=== PATIENT | male | born 1940 | race Two or more races ===

== ENCOUNTER 2016-12-23 13:55 | Emergency (ER) | payer OTHER, MEDICAID ==
[~2016-12-23] VITALS: Ht 175.3 cm; Wt 75.7 kg
[~2016-12-23 13:55] MED LIST: ATE50T PO
[2016-12-23 14:41] LABS: Basophils # (auto) 0 uL; Basophils % (auto) 0.2 % (0.0-2.0); Eosinophils # (auto) 0.1 uL; Eosinophils % (auto) 1.8 % (0.0-7.0); Hematocrit 43.8 % (41.0-53.0); Hemoglobin 15.3 g/dL (13.5-17.5); Lymphocytes # (auto) 1.5 uL; Lymphocytes % (auto) 23.7 % (10.0-50.0); Mean Corpuscular Hemoglobin 31.4 pg (28.0-32.0); Mean Corpuscular Hgb Conc. 34.9 g/dL (32.0-36.0); Mean Corpuscular Volume 89.9 fL (80.0-100.0); Mean Platelet Volume 7.8 fL (7.4-10.4); Monocytes # (auto) 0.3 uL; Monocytes % (auto) 5.1 % (0.0-12.0); Neutrophils # (auto) 4.4 uL; Neutrophils % (auto) 69.2 % (37.0-80.0); Platelet Count (auto) 235 10^3/uL (140-450); Red Cell Distribution Width 13.3 % (11.6-16.0); White Blood Cell 6.4 10^3/uL (4.4-10.8)
[2016-12-23 15:04] LABS: Albumin 4.3 g/dL (3.4-5.0); Alkaline Phosphatase 105 U/L (45-117); Anion Gap 7 (5-15); Aspartate Aminotransferase 20 U/L (15-37); BUN/Creatinine Ratio 12.2; Bilirubin, Total 0.6 mg/dL (0.2-1.0); Blood Urea Nitrogen 14 mg/dL (7-18); Carbon Dioxide 30 mmol/L (21-32); Chloride 103 mmol/L (98-107); GFR African American 80 mL/min; GFR Non-African American 66 mL/min; Glucose 91 mg/dL (74-106); Magnesium 2.6 mg/dL (1.6-2.6); Potassium 4.6 mmol/L (3.5-5.1); Sodium 140 mmol/L (136-145); Total Protein 7.6 g/dL (6.4-8.2)
[2016-12-23 21:30] VITALS: BP 126/76
== END 2016-12-23 22:19 | disposition home or self-care (01) ==
LOC: ER 13:55
DX: M47.892 Other spondylosis, cervical region (principal); R07.89 Other chest pain; M47.9 Spondylosis, unspecified; M19.90 Unspecified osteoarthritis, unspecified site; I10 Essential (primary) hypertension; I25.2 Old myocardial infarction; Z88.0 Allergy status to penicillin
CPT/HCPCS: 36415; 71020; 72125; 72131; 80053; 83735; 84484; 85025; 93005

== ENCOUNTER 2017-03-18 19:34 | Emergency (ER) | payer OTHER, MEDICAID ==
[~2017-03-18] VITALS: Ht 170.2 cm; Wt 73.5 kg
[2017-03-18 20:30] LABS: Basophils # (auto) 0 uL; Basophils % (auto) 0.4 % (0.0-2.0); CONDITION Y; Eosinophils # (auto) 0.1 uL; Eosinophils % (auto) 1.2 % (0.0-7.0); Hematocrit 39.4 % (41.0-53.0); Hemoglobin 13.6 g/dL (13.5-17.5); Lymphocytes # (auto) 1.5 uL; Lymphocytes % (auto) 27.2 % (10.0-50.0); Mean Corpuscular Hgb Conc. 34.5 g/dL (32.0-36.0); Mean Corpuscular Volume 92.6 fL (80.0-100.0); Monocytes # (auto) 0.3 uL; Monocytes % (auto) 5.8 % (0.0-12.0); Neutrophils # (auto) 3.6 uL; Neutrophils % (auto) 65.4 % (37.0-80.0); Platelet Count (auto) 203 10^3/uL (140-450); Red Cell Distribution Width 12.9 % (11.6-16.0); White Blood Cell 5.5 10^3/uL (4.4-10.8)
[2017-03-18 20:51] LABS: Albumin 4.1 g/dL (3.4-5.0); BUN/Creatinine Ratio 16.8; Bilirubin, Total 0.7 mg/dL (0.2-1.0); Calcium 8.4 mg/dL (8.5-10.1); Potassium 3.4 mmol/L (3.5-5.1)
[2017-03-19] MEDS ORDERED: cloNIDine HCL 0.1 MG TAB PO ONE ×2 (02:45→03:15)
[2017-03-19] MEDS ORDERED: LORazepam 0.5 MG TAB PO ONE (02:45)
[2017-03-19 03:06] VITALS: BP 165/85
== END 2017-03-19 04:10 | disposition home or self-care (01) ==
LOC: ER 19:37
DX: I10 Essential (primary) hypertension (principal); M19.90 Unspecified osteoarthritis, unspecified site; I25.2 Old myocardial infarction; H53.8 Other visual disturbances; Z90.49 Acquired absence of other specified parts of digestive tract; Z88.0 Allergy status to penicillin; Z79.899 Other long term (current) drug therapy
CPT/HCPCS: 36415; 70450; 80053; 85025

== ENCOUNTER 2017-04-16 20:25 | Inpatient (IN) | payer OTHER, MEDICAID ==
[~2017-04-16] VITALS: Ht 170.2 cm; Wt 75.1 kg
[2017-04-16 21:39] LABS: Basophils # (auto) 0 uL; Basophils % (auto) 0.2 % (0.0-2.0); CONDITION Y; Eosinophils # (auto) 0.1 uL; Eosinophils % (auto) 2.2 % (0.0-7.0); Hematocrit 41.6 % (41.0-53.0); Hemoglobin 14.2 g/dL (13.5-17.5); Lymphocytes # (auto) 1.6 uL; Lymphocytes % (auto) 28.7 % (10.0-50.0); Mean Corpuscular Hemoglobin 31.5 pg (28.0-32.0); Mean Corpuscular Hgb Conc. 34.2 g/dL (32.0-36.0); Mean Corpuscular Volume 92.3 fL (80.0-100.0); Mean Platelet Volume 8.3 fL (7.4-10.4); Monocytes # (auto) 0.4 uL; Monocytes % (auto) 6.6 % (0.0-12.0); Neutrophils # (auto) 3.4 uL; Neutrophils % (auto) 62.3 % (37.0-80.0); Platelet Count (auto) 221 10^3/uL (140-450); White Blood Cell 5.5 10^3/uL (4.4-10.8)
[2017-04-16 21:55] LABS: Albumin 3.9 g/dL (3.4-5.0); Alkaline Phosphatase 113 U/L (45-117); Anion Gap 9 (5-15); Aspartate Aminotransferase 13 U/L (15-37); BUN/Creatinine Ratio 13.7; Bilirubin, Total 0.5 mg/dL (0.2-1.0); Blood Urea Nitrogen 18 mg/dL (7-18); Calcium 8.3 mg/dL (8.5-10.1); Carbon Dioxide 25 mmol/L (21-32); Chloride 106 mmol/L (98-107); GFR African American 69 mL/min; GFR Non-African American 57 mL/min; Glucose 124 mg/dL (74-106); Potassium 3.8 mmol/L (3.5-5.1); Sodium 140 mmol/L (136-145); Total Protein 7.4 g/dL (6.4-8.2)
[2017-04-16 22:00] LABS: Temperature: 23.3 C (20.0-25.0)
[2017-04-17 00:54] LABS: Partial Thromboplastin Time 29.6 sec (22.64-33.71); Prothrombin Time 10.9 sec (9.37-12.3)
[2017-04-17] MEDS ORDERED: ONDANSETRON HCL 4 MG/2 ML VIAL IV PRN (04:00)
[2017-04-17] MEDS ORDERED: HYDROcodone-ACET 5/325MG TAB PO PRN (04:00)
[2017-04-17] MEDS ORDERED: cloNIDine HCL 0.1 MG TAB PO PRN (04:00)
[2017-04-17] MEDS ORDERED: MORPHINE SULF INJ 2 MG/ML SYRINGE 1ML IV PRN (04:00)
[2017-04-17] MEDS ORDERED: NITROGLYCERIN 0.4 MG SL TAB SL PRN (04:00)
[2017-04-17 05:44] VITALS: BP 152/75
[2017-04-17] MEDS ORDERED: LOR05T PO (06:04)
[2017-04-17] MEDS ORDERED: AMLO2.5T PO (06:04)
[2017-04-17] MEDS ORDERED: PRAV20TA3 PO (06:04)
[2017-04-17] MEDS ORDERED: DOCU-55 PO (06:04)
[2017-04-17] MEDS ORDERED: TAM04C PO (06:04)
[2017-04-17 08:00] VITALS: BP 145/78
[2017-04-17 08:19] VITALS: BP 145/78
[2017-04-17] MEDS: amLODIPine BESYLATE 5 MG TAB PO SCH (09:41)
[2017-04-17] MEDS: FAMOTIDINE 20 MG TAB PO SCH ×2 (09:42→21:58)
[2017-04-17] MEDS: ASPirin 81 mg TAB PO SCH (09:43)
[2017-04-17] MEDS: ATENOLOL 50 MG TAB PO SCH (09:43)
[2017-04-17] MEDS: ENOXAPARIN SOD 40 MG/0.4 ML SYRINGE SC SCH (10:00)
[2017-04-17 12:13] VITALS: BP 123/83
[2017-04-17 16:32] VITALS: BP 105/56
[2017-04-17] MEDS: DOCUSATE SOD 100 MG CAP PO PRN (17:25)
[2017-04-17] MEDS: TAMSULOSIN HYDROCHLORIDE 0.4 MG CAP PO SCH (17:25)
[2017-04-17] MEDS: ACETAMINOPHEN 325 MG TAB PO PRN (20:42)
[2017-04-17] MEDS: PRAVASTATIN SODIUM 20 MG TAB PO SCH (21:58)
[2017-04-17] MEDS: TEMAZEPAM 15 MG CAP PO PRN (21:58)
[2017-04-17 22:00] VITALS: BP 120/69
[2017-04-18 05:00] VITALS: BP 111/83
[2017-04-18 06:06] LABS: Basophils # (auto) 0 uL; Basophils % (auto) 0.3 % (0.0-2.0); CONDITION Y; Eosinophils # (auto) 0.1 uL; Eosinophils % (auto) 2.5 % (0.0-7.0); Hematocrit 41.3 % (41.0-53.0); Hemoglobin 14.1 g/dL (13.5-17.5); Lymphocytes # (auto) 1.5 uL; Mean Corpuscular Hemoglobin 31.5 pg (28.0-32.0); Mean Corpuscular Hgb Conc. 34.1 g/dL (32.0-36.0); Mean Corpuscular Volume 92.4 fL (80.0-100.0); Mean Platelet Volume 8.2 fL (7.4-10.4); Monocytes # (auto) 0.3 uL; Monocytes % (auto) 6.1 % (0.0-12.0); Neutrophils # (auto) 3.7 uL; Neutrophils % (auto) 64.1 % (37.0-80.0); Platelet Count (auto) 201 10^3/uL (140-450); Red Cell Distribution Width 12.9 % (11.6-16.0); White Blood Cell 5.7 10^3/uL (4.4-10.8)
[2017-04-18 06:23] LABS: Albumin 3.6 g/dL (3.4-5.0); BUN/Creatinine Ratio 20.6; Calcium 8.5 mg/dL (8.5-10.1); Potassium 4.2 mmol/L (3.5-5.1)
[2017-04-18 06:26] LABS: Bilirubin, Total 0.7 mg/dL (0.2-1.0); Total Protein 6.7 g/dL (6.4-8.2)
[2017-04-18 09:19] VITALS: BP 113/57
[2017-04-18] MEDS: amLODIPine BESYLATE 5 MG TAB PO SCH (10:00)
[2017-04-18] MEDS: DOCUSATE SOD 100 MG CAP PO PRN ×2 (11:05→21:18)
[2017-04-18] MEDS: ENOXAPARIN SOD 40 MG/0.4 ML SYRINGE SC SCH (11:05)
[2017-04-18] MEDS: ASPirin 81 mg TAB PO SCH (11:05)
[2017-04-18] MEDS: FAMOTIDINE 20 MG TAB PO SCH ×2 (11:05→21:18)
[2017-04-18] MEDS: ATENOLOL 50 MG TAB PO SCH (11:06)
[2017-04-18 12:20] VITALS: BP 129/76
[2017-04-18 16:55] VITALS: BP 114/69
[2017-04-18] MEDS: TAMSULOSIN HYDROCHLORIDE 0.4 MG CAP PO SCH (17:18)
[2017-04-18 20:00] VITALS: BP 136/84
[2017-04-18] MEDS: PRAVASTATIN SODIUM 20 MG TAB PO SCH (21:18)
[2017-04-18] MEDS: ACETAMINOPHEN 325 MG TAB PO PRN (21:19)
[2017-04-18] MEDS: TEMAZEPAM 15 MG CAP PO PRN (21:19)
[2017-04-18 22:00] VITALS: BP 136/80
[2017-04-19 05:00] VITALS: BP 111/65
[2017-04-19 08:00] VITALS: BP 136/84
[2017-04-19 09:30] VITALS: BP 133/78
[2017-04-19] MEDS ORDERED: ADENOSINE 63 MG in GIVE UN-DILUTED 0 ML IV ONE (11:00)
[2017-04-19] MEDS: FAMOTIDINE 20 MG TAB PO SCH (12:23)
[2017-04-19] MEDS: ASPirin 81 mg TAB PO SCH (12:23)
[2017-04-19] MEDS: ATENOLOL 50 MG TAB PO SCH (12:24)
[2017-04-19] MEDS: amLODIPine BESYLATE 5 MG TAB PO SCH (12:25)
[2017-04-19 17:03] VITALS: BP 118/67
[2017-04-19 17:26] VITALS: BP 139/80
[2017-04-19] MEDS: TAMSULOSIN HYDROCHLORIDE 0.4 MG CAP PO SCH (18:00)
== END 2017-04-19 18:50 | disposition home or self-care (01) | DRG 313 ==
LOC: ER 20:25 → EDBD 20:25 → TELE 20:26 → TELE-CENTR 04-17 05:20
PROVIDERS: ADMIT Nurse Practitioner; ATTEND Internal Medicine
DX: R07.89 Other chest pain (principal); I25.2 Old myocardial infarction; N17.0 Acute kidney failure with tubular necrosis; I10 Essential (primary) hypertension; E78.5 Hyperlipidemia, unspecified; I25.10 Atherosclerotic heart disease of native coronary artery without angina pectoris; Z88.0 Allergy status to penicillin
CPT/HCPCS: 36415; 71010; 80053; 83880; 84443; 84484; 85025; 85379; 85610; 85730; 93005; 93017; J0153

== ENCOUNTER 2017-10-24 22:15 | Inpatient (IN) | payer OTHER, MEDICAID ==
[~2017-10-24] VITALS: Ht 175.3 cm; Wt 71.9 kg
[~2017-10-24 22:15] MED LIST changes: +AMLO2.5T PO; +DOCU-55 PO; +LORA-654 PO; +PRAV20TA3 PO; +TAM04C PO
[2017-10-24] MEDS ORDERED: cloNIDine HCL 0.1 MG TAB PO ONE (23:00)
[2017-10-24 23:11] LABS: Basophils # (auto) 0 uL; Basophils % (auto) 0.7 % (0.0-2.0); Eosinophils # (auto) 0.2 uL; Eosinophils % (auto) 2.2 % (0.0-7.0); Hematocrit 43.6 % (41.0-53.0); Lymphocytes # (auto) 1.7 uL; Mean Corpuscular Hgb Conc. 34.5 g/dL (32.0-36.0); Mean Corpuscular Volume 90.1 fL (80.0-100.0); Monocytes # (auto) 0.4 uL; Monocytes % (auto) 5.8 % (0.0-12.0); Neutrophils # (auto) 4.7 uL; Neutrophils % (auto) 67.3 % (37.0-80.0); Platelet Count (auto) 179 10^3/uL (140-450); Red Blood Cells 4.84 10^6/uL (4.5-5.90); Red Cell Distribution Width 13.3 % (11.8-14.3)
[2017-10-24 23:29] LABS: BUN/Creatinine Ratio 15.5
[2017-10-24 23:32] LABS: Bilirubin, Total 0.7 mg/dL (0.2-1.0); Total Protein 7.1 g/dL (6.4-8.2)
[2017-10-24 23:56] LABS: Urine Bacteria NONE SEEN /hpf (None Seen); Urine Blood Negative /uL (Negative); Urine Specific Gravity 1.007 (1.001-1.035); Urine WBC <1 /hpf (0 - 3)
[2017-10-25 02:34] LABS: INR 1.03 (0.9-1.15); Partial Thromboplastin Time 29.1 sec (22.64-33.71); Prothrombin Time 11.2 sec (9.37-12.3)
[2017-10-25] MEDS ORDERED: HYDROcodone-ACET 5/325MG TAB PO PRN (06:30)
[2017-10-25] MEDS ORDERED: ACETAMINOPHEN 500 MG TAB PO PRN (06:30)
[2017-10-25] MEDS ORDERED: ASPirin-EC 81 mg tab PO ONE (06:30)
[2017-10-25] MEDS ORDERED: NITROGLYCERIN 0.4 MG SL TAB SL PRN (06:30)
[2017-10-25] MEDS ORDERED: MORPHINE SULFATE 4 MG/ML SYR/VIAL IV PRN (06:30)
[2017-10-25] MEDS ORDERED: ONDANSETRON HCL 4 MG/2 ML VIAL IV PRN (06:30)
[2017-10-25] MEDS: amLODIPine BESYLATE 5 MG TAB PO SCH (10:30)
[2017-10-25 12:15] VITALS: BP 128/72
[2017-10-25 13:00] VITALS: BP 127/98
[2017-10-25 13:53] LABS: Cholesterol 99 mg/dL (< 200); HDL Cholesterol 38 mg/dL (40-59); LDL Cholesterol 65 mg/dL (< 100); Triglycerides 97 mg/dL (< 150)
[2017-10-25 17:00] VITALS: BP 124/80
[2017-10-25] MEDS ORDERED: TAMSULOSIN HYDROCHLORIDE 0.4 MG CAP PO SCH (18:00)
[2017-10-25 20:00] VITALS: BP 116/69
[2017-10-25] MEDS: METOPROLOL SUCCINATE XL 50 MG TAB PO SCH (21:53)
[2017-10-25 22:00] VITALS: BP 116/69
[2017-10-25] MEDS ORDERED: PRAVASTATIN SODIUM 20 MG TAB PO SCH (22:00)
[2017-10-26 05:03] VITALS: BP 118/67
[2017-10-26 08:00] VITALS: BP 116/69
[2017-10-26 09:00] VITALS: BP 92/64
[2017-10-26] MEDS: METOPROLOL SUCCINATE XL 50 MG TAB PO SCH (10:00)
[2017-10-26] MEDS ORDERED: ASPirin-EC 81 mg tab PO SCH (10:00)
[2017-10-26] MEDS: amLODIPine BESYLATE 5 MG TAB PO SCH (10:00)
[2017-10-26 12:44] VITALS: BP 92/64
== END 2017-10-26 13:51 | disposition home or self-care (01) | DRG 206 ==
LOC: EDBD 22:15 → ER 22:15 → TELE 22:16 → TELE-WESTW 10-25 11:55
PROVIDERS: ADMIT Nurse Practitioner Family; ATTEND Internal Medicine Pulmonary Disease
DX: M94.0 Chondrocostal junction syndrome [Tietze] (principal); I67.2 Cerebral atherosclerosis; D17.9 Benign lipomatous neoplasm, unspecified; I25.2 Old myocardial infarction; E78.5 Hyperlipidemia, unspecified; M19.90 Unspecified osteoarthritis, unspecified site; I10 Essential (primary) hypertension; F41.9 Anxiety disorder, unspecified; Z82.49 Family history of ischemic heart disease and other diseases of the circulatory system; Z83.3 Family history of diabetes mellitus; Z79.899 Other long term (current) drug therapy
CPT/HCPCS: 36415; 70450; 71045; 80053; 80061; 81001; 83880; 84484; 85025; 85379; 85610; 85730; 93005; 93306

== ENCOUNTER 2019-05-07 17:41 | Inpatient (IN) | payer OTHER, MEDICAID ==
[~2019-05-07] VITALS: Ht 175.3 cm; Wt 70.0 kg
[~2019-05-07 17:41] MED LIST changes: -AMLO2.5T PO; +AMLO2.5T7 PO; -LORA-654 PO; +LORA0.5T12 PO
[2019-05-07 18:20] LABS: Basophils # (auto) 0.1 uL; Basophils % (auto) 0.7 % (0.0-2.0); Eosinophils # (auto) 0 uL; Eosinophils % (auto) 0.3 % (0.0-7.0); Hemoglobin 14.5 g/dL (13.5-17.5); Lymphocytes # (auto) 1.3 uL; Lymphocytes % (auto) 16.6 % (10.0-50.0); Mean Corpuscular Hemoglobin 31.4 pg (28.0-32.0); Mean Corpuscular Hgb Conc. 35.3 g/dL (32.0-36.0); Mean Corpuscular Volume 88.8 fL (80.0-100.0); Monocytes # (auto) 0.4 uL; Monocytes % (auto) 5.8 % (0.0-12.0); Neutrophils # (auto) 5.9 uL; Neutrophils % (auto) 76.6 % (37.0-80.0); Nucleated Red Blood Cells % 0.1 %; Platelet Count (auto) 157 10^3/uL (140-450); Red Blood Cells 4.61 10^6/uL (4.5-5.90); Red Cell Distribution Width 13.2 % (11.8-14.3); White Blood Cell 7.7 10^3/uL (4.4-10.8)
[2019-05-07 18:36] LABS: Alanine Aminotransferase 13 U/L (16-61); Albumin 4.4 g/dL (3.4-5.0); Anion Gap 7 (5-15); Aspartate Aminotransferase 15 U/L (15-37); BUN/Creatinine Ratio 15.5; Blood Urea Nitrogen 18 mg/dL (7-18); Calcium 8.9 mg/dL (8.5-10.1); Carbon Dioxide 28 mmol/L (21-32); Chloride 107 mmol/L (98-107); GFR African American 79 mL/min; GFR Non-African American 65 mL/min; Glucose 98 mg/dL (74-106); Potassium 4.7 mmol/L (3.5-5.1); Sodium 142 mmol/L (136-145)
[2019-05-07 18:41] LABS: Alkaline Phosphatase 98 U/L (45-117); Bilirubin, Total 0.7 mg/dL (0.2-1.0); Total Protein 7.2 g/dL (6.4-8.2)
[2019-05-08] MEDS ORDERED: LEVOFLOXACIN 500MG 100 ML IV ONE (02:30)
[2019-05-08] MEDS ORDERED: SODIUM CHLORIDE 0.9% 1,000 ML IV ONE (02:30)
[2019-05-08] MEDS ORDERED: metroNIDAZOLE 500 MG TAB PO ONE (02:30)
[2019-05-08 02:59] LABS: Amylase 59 U/L (25-115); Lipase 85 U/L (73-393)
[2019-05-08] MEDS ORDERED: NITROGLYCERIN 0.4 MG SL TAB SL PRN (05:00)
[2019-05-08] MEDS ORDERED: ENALAPRILAT 1.25 MG/ML-1ML VIAL IV PRN (05:00)
[2019-05-08] MEDS ORDERED: ONDANSETRON HCL 4 MG/2 ML VIAL IV PRN (05:00)
[2019-05-08] MEDS ORDERED: MORPHINE SULF INJ 2 MG/ML SYRINGE 1ML IV PRN ×2 (05:00)
[2019-05-08] MEDS ORDERED: SODIUM CHLORIDE 0.9% 1,000 ML IV SCH (05:00)
[2019-05-08] MEDS ORDERED: HYDROcodone-ACET 5/325MG TAB PO PRN (05:00)
[2019-05-08] MEDS ORDERED: ACETAMINOPHEN 500 MG TAB PO PRN (05:00)
[2019-05-08 06:32] VITALS: BP 138/83
--- NOTE | 2019-05-08 06:32 | NUR ---
Telemetry admit from ER MEGHA VASQUES admitted to Telemetry unit. Patient oriented to UVALDO FINK RN primary RN, unit, room, bed, and unit policies regarding patient care and visiting hours. Patient now on continuous telemetry monitoring, tele box # 74 and telemetry reading on arrival to unit is sinus rhythm with ST elevation at 67 beats per minute. Patient placed on bedside oxygen at 2.0 liters via nasal cannula, weighed by bedscale and encouraged to call if they need something. All questions, concerns, and educated addressed through sourcing engineer RN, patient verbalized understanding. Bed in lowest locked position, side rails up x2, call light within reach. No s/s of distress, will continue to monitor.
[2019-05-08] MEDS: metroNIDAZOLE 500MG/100ML 100 ML IV SCH ×3 (06:48→21:02)
--- NOTE | 2019-05-08 07:40 | NUR ---
Closing Note Patient lying in bed, awake and alert, no s/s of distress. Bed in lowest locked position, side rails up x2, call light within reach. Care endorsed to dayshift RN.
--- NOTE | 2019-05-08 07:50 | NUR ---
Opening Shift Note Assumed care of patient. Patient is awake, alert and eating breakfast. No S/S of distress/SOB noted. Patient denies pain at this time. Patient is able to ambulate to the restroom. Instructed patient on POC and to call for assistance as needed. Will continue to monitor.
[2019-05-08 08:27] VITALS: BP 138/83
[2019-05-08 09:00] VITALS: BP 138/83
[2019-05-08] MEDS: LEVOFLOXACIN 500MG 100 ML IV SCH (09:15)
[2019-05-08] MEDS: FAMOTIDINE (10MG/ML) 2ML VL IV SCH ×2 (09:15→21:02)
[2019-05-08] MEDS: METOPROLOL TARTRATE 25 MG TAB PO SCH ×2 (09:21→21:03)
[2019-05-08 13:00] VITALS: BP 168/79
[2019-05-08] MEDS: SODIUM CHLORIDE 0.9% 1,000 ML IV SCH (16:46)
[2019-05-08 17:00] VITALS: BP 168/81
[2019-05-08] MEDS ORDERED: TAMSULOSIN HYDROCHLORIDE 0.4 MG CAP PO SCH (18:00)
--- NOTE | 2019-05-08 19:45 | NUR ---
RECEIVED PATIENT IN BED, AAOX4. NO DISTRESS NOTED. INTRODUCED MYSELF TO THE PATIENT. DENIES PAIN. NO SOB NOTED. POCS DISCUSSED WITH PATIENT AND SHOWED UNDERSTANDING. BED KEPT ON LOWEST POSITION. SIDE RAILS UP. CALL LIGHT/TABLE IN REACH. KEPT COMFORTABLE.
[2019-05-08 21:42] VITALS: BP 138/88
[2019-05-09 05:00] VITALS: BP 131/79
[2019-05-09] MEDS: metroNIDAZOLE 500MG/100ML 100 ML IV SCH ×2 (05:32→13:53)
[2019-05-09 06:21] LABS: Basophils # (auto) 0 uL; Basophils % (auto) 0.3 % (0.0-2.0); Eosinophils # (auto) 0 uL; Eosinophils % (auto) 0.3 % (0.0-7.0); Hematocrit 39.6 % (41.0-53.0); Hemoglobin 14.4 g/dL (13.5-17.5); Lymphocytes # (auto) 1.1 uL; Lymphocytes % (auto) 23.2 % (10.0-50.0); Mean Corpuscular Hemoglobin 32.1 pg (28.0-32.0); Mean Corpuscular Hgb Conc. 36.2 g/dL (32.0-36.0); Mean Corpuscular Volume 88.6 fL (80.0-100.0); Monocytes # (auto) 0.3 uL; Neutrophils # (auto) 3.4 uL; Neutrophils % (auto) 70.2 % (37.0-80.0); Platelet Count (auto) 152 10^3/uL (140-450); Red Blood Cells 4.47 10^6/uL (4.5-5.90); White Blood Cell 4.8 10^3/uL (4.4-10.8)
--- NOTE | 2019-05-09 06:32 | NUR ---
ON BED, AWAKE. STABLE. NO DISTRESS NOTED. FOR MORE CARE AND MANAGEMENT.
[2019-05-09 06:39] LABS: Calcium 8.7 mg/dL (8.5-10.1); Potassium 3.9 mmol/L (3.5-5.1)
[2019-05-09 06:45] LABS: BUN/Creatinine Ratio 13.2
--- NOTE | 2019-05-09 07:15 | NUR ---
Opening Shift Note Assumed care of patient. Patient is awake, alert and oriented. No S/S of distress/SOB noted. Patient denies pain at this time. Instructed patient on POC and to call for assistance as needed. Paitent has 0.9 NaCl running at 50 ml/hr to the left forearm. Bed is in low position and call light is within reach. Will continue to monitor.
[2019-05-09 09:00] VITALS: BP 134/81
[2019-05-09] MEDS: SODIUM CHLORIDE 0.9% 1,000 ML IV SCH (09:30)
[2019-05-09] MEDS: FAMOTIDINE (10MG/ML) 2ML VL IV SCH (10:16)
[2019-05-09] MEDS: LEVOFLOXACIN 500MG 100 ML IV SCH (10:23)
[2019-05-09] MEDS: METOPROLOL TARTRATE 25 MG TAB PO SCH (10:30)
[2019-05-09] MEDS ORDERED: CIPR-173 PO (12:34)
[2019-05-09] MEDS ORDERED: METR500T PO (12:34)
--- NOTE | 2019-05-09 12:35 | NUR ---
Dr. Fonseca at bedside. Discussed plan of care with patient.
--- NOTE | 2019-05-09 12:36 | NUR ---
New orders to upgrade clear liquid diet to regular diet as tolerated by patient.
[2019-05-09 12:50] LABS: Urine Bacteria NONE SEEN /hpf (None Seen); Urine Blood Negative /uL (Negative); Urine Specific Gravity 1.003 (1.001-1.035); Urine WBC 1 /hpf (0 - 3)
[2019-05-09 13:15] VITALS: BP 149/86
[2019-05-09 13:58] VITALS: BP 131/73
== END 2019-05-09 16:28 | disposition home or self-care (01) | DRG 392 ==
LOC: EDBD 17:41 → ER 17:41 → TELE 17:42 → TELE-WESTW 05-08 06:32
PROVIDERS: ADMIT Nurse Practitioner Acute Care; ATTEND Internal Medicine Nephrology
DX: K57.32 Diverticulitis of large intestine without perforation or abscess without bleeding (principal); N18.3 Chronic kidney disease, stage 3 (moderate); N40.0 Benign prostatic hyperplasia without lower urinary tract symptoms; K59.00 Constipation, unspecified; K40.90 Unilateral inguinal hernia, without obstruction or gangrene, not specified as recurrent; N43.3 Hydrocele, unspecified; I12.9 Hypertensive chronic kidney disease with stage 1 through stage 4 chronic kidney disease, or unspecified chronic kidney disease; Z85.038 Personal history of other malignant neoplasm of large intestine; Z90.49 Acquired absence of other specified parts of digestive tract; Z79.899 Other long term (current) drug therapy; I25.2 Old myocardial infarction; Z88.0 Allergy status to penicillin
CPT/HCPCS: 36415; 74176; 80048; 80053; 81001; 82150; 82378; 83690; 84484; 85025; 93005; 96365; G0378; J1956; J3490

== ENCOUNTER 2019-12-09 08:13 | Inpatient (IN) | payer OTHER, MEDICAID ==
[~2019-12-09] VITALS: Ht 185.4 cm; Wt 70.3 kg
[~2019-12-09 08:13] MED LIST changes: +AMLO-483 PO; -AMLO2.5T7 PO; +CIPR-173 PO; -DOCU-55 PO; -LORA0.5T12 PO; +LORA0.5T20 PO; +METR500T PO
[2019-12-09] MEDS ORDERED: SODIUM CHLORIDE 0.9% 1,000 ML IV ONE (09:35)
[2019-12-09 09:40] LABS: Basophils # (auto) 0 10 ^3/uL (0-0.2); Basophils % (auto) 0.1 % (0.0-2.0); Eosinophils # (auto) 0 10 ^3/uL (0-0.8); Eosinophils % (auto) 0.1 % (0.0-7.0); Hematocrit 46.1 % (41.0-53.0); Hemoglobin 15.6 g/dL (13.5-17.5); Lymphocytes # (auto) 0.9 10 ^3/uL (0.4-5.4); Lymphocytes % (auto) 8.5 % (10.0-50.0); Mean Corpuscular Hgb Conc. 33.8 g/dL (32.0-36.0); Mean Corpuscular Volume 91.5 fL (80.0-100.0); Monocytes # (auto) 0.7 10 ^3/uL (0-1.3); Monocytes % (auto) 6.2 % (0.0-12.0); Neutrophils # (auto) 9.2 10 ^3/uL (1.6-8.6); Neutrophils % (auto) 85.1 % (37.0-80.0); Platelet Count (auto) 180 10^3/uL (140-450); Red Blood Cells 5.04 10^6/uL (4.5-5.90); Red Cell Distribution Width 13.7 % (11.8-14.3); White Blood Cell 10.8 10^3/uL (4.4-10.8)
[2019-12-09 09:53] LABS: Calcium 8.9 mg/dL (8.5-10.1); Chloride 100 mmol/L (98-107); Potassium 4.1 mmol/L (3.5-5.1); Sodium 134 mmol/L (136-145)
[2019-12-09 10:01] LABS: Alanine Aminotransferase 32 U/L (16-61); Albumin 3.8 g/dL (3.4-5.0); Alkaline Phosphatase 86 U/L (45-117); Anion Gap 7 (5-15); Aspartate Aminotransferase 19 U/L (15-37); BUN/Creatinine Ratio 28.9; Bilirubin, Total 1.1 mg/dL (0.2-1.0); Blood Urea Nitrogen 39 mg/dL (7-18); Carbon Dioxide 27 mmol/L (21-32); GFR African American 66 mL/min; GFR Non-African American 54 mL/min; Glucose 82 mg/dL (74-106)
[2019-12-09 10:03] LABS: Urine Bacteria FEW /hpf (None Seen); Urine Blood Negative /uL (Negative); Urine Mucus FEW (None Seen); Urine WBC 1 /hpf (0 - 3)
[2019-12-09 10:45] LABS: Magnesium 2.6 mg/dL (1.6-2.6)
[2019-12-09] MEDS ORDERED: cefTRIAXone 1GM/50ML D5W 50 ML IV ONE (10:45)
[2019-12-09] MEDS ORDERED: metroNIDAZOLE 500MG/100ML 100 ML IV ONE (10:45)
[2019-12-09 10:54] LABS: INR 1.07 (0.9-1.15); Partial Thromboplastin Time 30.1 sec (23.64-32.05)
[2019-12-09] MEDS ORDERED: HYDROmorphone HCL 2 MG/ML VL IV ONE (11:00)
[2019-12-09] MEDS ORDERED: PROMETHAZINE HCL 25 MG/ML 1ML IV ONE (11:00)
[2019-12-09] MEDS: SODIUM CHLORIDE 0.9% 1,000 ML IV SCH ×2 (11:08→21:08)
[2019-12-09] MEDS ORDERED: MORPHINE SULF INJ 2 MG/ML SYRINGE 1ML IV PRN ×2 (11:15)
[2019-12-09] MEDS ORDERED: PROMETHAZINE HCL 25 MG/ML 1ML IV PRN (11:15)
[2019-12-09] MEDS ORDERED: levoFLOXacin 500MG 100 ML IV ONE (11:15)
[2019-12-09] MEDS ORDERED: LORazepam 2MG/ML-1ML VIAL IV PRN (11:15)
[2019-12-09] MEDS: FAMOTIDINE (10MG/ML) 2ML VL IV SCH ×2 (11:54→22:02)
--- NOTE | 2019-12-09 12:04 | NUR ---
MED-SURG admit from ER MEGHA VASQUES admitted to Telemetry unit after SBAR received. Patient oriented to Erin Gill primary RN, unit, room, bed, and unit policies regarding patient care and visiting hours. Patient NPO, NG TUBE TO THE RIGHT NARE PLACED ON LCS.PATIENT weighed by bedscale and encouraged to call if they need something. All questions and concerns addressed, patient verbalized understanding.
[2019-12-09] MEDS: metroNIDAZOLE 500MG/100ML 100 ML IV SCH ×2 (16:21→22:03)
[2019-12-09 17:00] VITALS: BP 134/84
--- NOTE | 2019-12-09 20:00 | NUR ---
PT AWAKE ALERT ORIENTED X3 DOES NOT SPEAK [place] BUT THROUGH AN LEGAL PROCESS SPECIALIST PT STATES HE IS ANXIOUS TO SEE THE SURGEON AND ANXIOUS TO GET HIS NGT OUT. WILL CONTINUE TO MONITOR.
[2019-12-09 22:00] VITALS: BP 130/77
[2019-12-10] MEDS: metroNIDAZOLE 500MG/100ML 100 ML IV SCH (05:24)
[2019-12-10 09:00] VITALS: BP 121/75
[2019-12-10] MEDS: SODIUM CHLORIDE 0.9% 1,000 ML IV SCH ×3 (09:13→17:58)
[2019-12-10] MEDS ORDERED: levoFLOXacin 500MG 100 ML IV SCH (10:00)
[2019-12-10] MEDS: FAMOTIDINE (10MG/ML) 2ML VL IV SCH ×2 (11:51→23:15)
[2019-12-10 13:00] VITALS: BP 144/88
[2019-12-10 13:03] LABS: Basophils # (auto) 0 10 ^3/uL (0-0.2); Basophils % (auto) 0.5 % (0.0-2.0); Eosinophils # (auto) 0 10 ^3/uL (0-0.8); Eosinophils % (auto) 0.2 % (0.0-7.0); Hematocrit 48.2 % (41.0-53.0); Hemoglobin 16.2 g/dL (13.5-17.5); Lymphocytes # (auto) 0.9 10 ^3/uL (0.4-5.4); Lymphocytes % (auto) 8.5 % (10.0-50.0); Mean Corpuscular Hgb Conc. 33.6 g/dL (32.0-36.0); Mean Corpuscular Volume 92.2 fL (80.0-100.0); Monocytes # (auto) 0.6 10 ^3/uL (0-1.3); Monocytes % (auto) 5.6 % (0.0-12.0); Neutrophils # (auto) 9.1 10 ^3/uL (1.6-8.6); Neutrophils % (auto) 85.2 % (37.0-80.0); Nucleated Red Blood Cells % 0.1 %; Platelet Count (auto) 208 10^3/uL (140-450); Red Blood Cells 5.23 10^6/uL (4.5-5.90); Red Cell Distribution Width 13.4 % (11.8-14.3); White Blood Cell 10.6 10^3/uL (4.4-10.8)
[2019-12-10 13:18] LABS: Albumin 3.7 g/dL (3.4-5.0); Calcium 9.1 mg/dL (8.5-10.1); Potassium 4.4 mmol/L (3.5-5.1)
[2019-12-10 13:21] LABS: BUN/Creatinine Ratio 26.6
[2019-12-10 13:23] LABS: Bilirubin, Total 1.2 mg/dL (0.2-1.0); Total Protein 8.1 g/dL (6.4-8.2)
[2019-12-10] MEDS: MEROPENEM 1GM IVPB 100 ML IV SCH ×2 (14:33→22:10)
--- NOTE | 2019-12-10 15:34 | NUR ---
Spoke to Yuli (pham sup) regarding patient has a midline order, per Yuli there is no midline nurse today.
[2019-12-10 17:00] VITALS: BP 136/89
[2019-12-10] MEDS ORDERED: MECL1TAB42 PO (18:02)
--- NOTE | 2019-12-10 18:08 | NUR ---
Patient wants home meds back, Dr. Batres paged. Awaiting to call back.
--- NOTE | 2019-12-10 19:20 | NUR ---
Opening Shift Note Received report from Faheem ALEXANDER. Assumed care of patient, awake and alert. No S/S of distress/SOB or pain. NGT to R nares intact draining greenish output. Instructed on POC and to call for assist PRN. Fall precaution measures in place, will continue to monitor for changes Q1hr and PRN.
--- NOTE | 2019-12-10 21:28 | NUR ---
Patient complains of headache 02/15, Morphine IV given. Bed alarm on, continue care.
[2019-12-10 22:00] VITALS: BP 148/93
[2019-12-11] MEDS: SODIUM CHLORIDE 0.9% 1,000 ML IV SCH ×2 (01:23→10:31)
--- NOTE | 2019-12-11 03:20 | NUR ---
Patient jolted out of sleep and got confused, he thought he was dreaming and at home. Patient reoriented on where about and plan of care, verbalized understanding.
[2019-12-11 05:00] VITALS: BP 129/86
[2019-12-11] MEDS: MEROPENEM 1GM IVPB 100 ML IV SCH ×3 (06:01→21:59)
[2019-12-11 06:30] LABS: Basophils # (auto) 0 10 ^3/uL (0-0.2); Basophils % (auto) 0.1 % (0.0-2.0); Eosinophils # (auto) 0 10 ^3/uL (0-0.8); Eosinophils % (auto) 0.3 % (0.0-7.0); Hemoglobin 14.9 g/dL (13.5-17.5); Lymphocytes # (auto) 0.9 10 ^3/uL (0.4-5.4); Lymphocytes % (auto) 10.6 % (10.0-50.0); Mean Corpuscular Hemoglobin 31.8 pg (28.0-32.0); Mean Corpuscular Hgb Conc. 34.8 g/dL (32.0-36.0); Mean Corpuscular Volume 91.4 fL (80.0-100.0); Monocytes # (auto) 0.5 10 ^3/uL (0-1.3); Monocytes % (auto) 5.6 % (0.0-12.0); Neutrophils # (auto) 7.1 10 ^3/uL (1.6-8.6); Neutrophils % (auto) 83.4 % (37.0-80.0); Nucleated Red Blood Cells % 0.5 %; Platelet Count (auto) 182 10^3/uL (140-450); Red Cell Distribution Width 13.2 % (11.8-14.3); White Blood Cell 8.5 10^3/uL (4.4-10.8)
[2019-12-11 06:50] LABS: Albumin 3.1 g/dL (3.4-5.0); Calcium 8.8 mg/dL (8.5-10.1); Potassium 4.3 mmol/L (3.5-5.1)
[2019-12-11 06:51] LABS: BUN/Creatinine Ratio 28.6
[2019-12-11 06:54] LABS: Total Protein 6.8 g/dL (6.4-8.2)
--- NOTE | 2019-12-11 07:01 | NUR ---
Patient accidentally pulled out the NGT.
--- NOTE | 2019-12-11 07:30 | NUR ---
Patient is stable, no complain of pain. Endorsed to Dina ALEXANDER to follow up with MD if still want the NGT to be reinserted.
--- NOTE | 2019-12-11 07:41 | NUR ---
Opening Note Assumed pt care form NOC RN. Pt is a/ox4 with no s/s of distress or SOB. Pt is currently sitting at edge of bed with no complaints at this time. Pt currently has NG tube out, self removed this morning and wishes to leave it out unit MD comes in today. Pt denies any abdominal pain. Discussed POC with pt; pt verbalized understanding. Pt aware of pending surgical consult. Safety measures maintained with call light within reach, bed in lowest position and side rails up. Will continue to monitor.
[2019-12-11 08:00] VITALS: BP 136/92
[2019-12-11] MEDS: FAMOTIDINE (10MG/ML) 2ML VL IV SCH ×2 (09:47→23:26)
[2019-12-11 12:00] VITALS: BP 132/87
--- NOTE | 2019-12-11 13:56 | NUR ---
Talia VERGARA Paged Dr Recinos regarding need to NG tube. Consulted Dr Minor. Mily requested that I contact Dr Recinos for NG tube need. Addendum: 12/11/19 at 1359 by HUA BUSTILLOS RN RN Dr Recinos stated that NG tube can remain out as long as pt is strict NPO.
--- NOTE | 2019-12-11 15:19 | NUR ---
Nutrition Assessment Notes please see attached link for complete assessment Est. Needs IBW (83 kg): 5116-1063 kcal (25-30 kcal/kgBW), 83-99 gms pro (1.0-1.2 gms/kgBW). Will continue to monitor pertinent labs and reassess nutrient need prn Addendum: 12/11/19 at [address] Amended: Links added.
--- NOTE | 2019-12-11 16:53 | NUR ---
Midline Update Heather midline RN, stated that will midline will be placed tomorrow.
[2019-12-11 17:00] VITALS: BP 147/87
--- NOTE | 2019-12-11 17:10 | NUR ---
Mild Period of Confusion Pt displays an episode of confusion r/t why he is here and where he is at. At this time, pt also self removed his IV. Reoriented pt. Will continue to monitor.
--- NOTE | 2019-12-11 17:27 | NUR ---
IV Insertion 20 G to pt's L FA inserted using clean/sterile technique. One attempt made. Pt tolerated insertion well. IV to pt's R Wrist was self removed fully intact. Site is asymptomatic. Dressing applied to site.
--- NOTE | 2019-12-11 18:35 | NUR ---
Point of Contact Abril Penn, pt's daughter in law, requested that her number be left for contact. [phone]
--- NOTE | 2019-12-11 18:58 | NUR ---
IV Insertion and Removal Pt self removed 20 G to pt's L FA. Catheter was removed fully intact. Site is asymptomatic. Dressing applied to site 20G to pt's R hand inserted, 2 attempts made. Pt tolerated insertion well. Will continue to monitor.
--- NOTE | 2019-12-11 19:25 | NUR ---
Opening Shift Note Received report from Dina ALEXANDER. Assumed care of patient, awake and alert x1-2, somewhat confused as he is standing by the door wandering. No S/S of distress/SOB or pain. Patient reoriented and assisted back to bed. Instructed on POC and to call for assist PRN, will continue to monitor for changes Q1hr and PRN.
[2019-12-11 21:00] VITALS: BP 119/72
--- NOTE | 2019-12-11 21:30 | NUR ---
Patient got confused, tear off the IV tubing and saying he is going home. Charge nurse Angelica made aware, no sitter available. Primary RN and student manager small business will be in close sight with the patient.
[2019-12-12] MEDS: SODIUM CHLORIDE 0.9% 1,000 ML IV SCH ×3 (04:10→17:36)
[2019-12-12 05:00] VITALS: BP 129/76
[2019-12-12] MEDS: MEROPENEM 1GM IVPB 100 ML IV SCH ×3 (05:49→21:04)
--- NOTE | 2019-12-12 05:56 | NUR ---
Patient awake at this time, requested ANA Cramer to interpret. Per patient he is happy because he slept well and were able to speak with his , son and brother. He knows his name, and where he's at except he doesn't know the name of the hospital. Patient vitals are stable and no complains of pain. Continue care.
[2019-12-12 06:02] LABS: Basophils # (auto) 0 10 ^3/uL (0-0.2); Basophils % (auto) 0.5 % (0.0-2.0); Eosinophils # (auto) 0 10 ^3/uL (0-0.8); Eosinophils % (auto) 0.6 % (0.0-7.0); Hematocrit 41.4 % (41.0-53.0); Hemoglobin 14.4 g/dL (13.5-17.5); Mean Corpuscular Hemoglobin 31.6 pg (28.0-32.0); Mean Corpuscular Hgb Conc. 34.7 g/dL (32.0-36.0); Mean Corpuscular Volume 90.9 fL (80.0-100.0); Monocytes # (auto) 0.4 10 ^3/uL (0-1.3); Monocytes % (auto) 5.6 % (0.0-12.0); Neutrophils % (auto) 80.3 % (37.0-80.0); Nucleated Red Blood Cells % 0.1 %; Platelet Count (auto) 184 10^3/uL (140-450); Red Blood Cells 4.55 10^6/uL (4.5-5.90); Red Cell Distribution Width 13.2 % (11.8-14.3); White Blood Cell 7.4 10^3/uL (4.4-10.8)
[2019-12-12 06:05] LABS: Albumin 3.3 g/dL (3.4-5.0); Calcium 8.6 mg/dL (8.5-10.1); Magnesium 2.3 mg/dL (1.6-2.6); Potassium 4.1 mmol/L (3.5-5.1)
[2019-12-12 06:09] LABS: BUN/Creatinine Ratio 31.5; Bilirubin, Total 1.1 mg/dL (0.2-1.0); Total Protein 6.8 g/dL (6.4-8.2)
--- NOTE | 2019-12-12 07:40 | NUR ---
Opening shift note Assumed care of patient from NOC CATHERINE Donaldson. Patient is AOx4, no s/s of distress noted. Bed is in lowest locked position, side rails up x2, and call light is within reach. Updated patient on plan of care, and patient verbalized understanding. I will continue to monitor Q1hr and PRN.
--- NOTE | 2019-12-12 08:25 | NUR ---
Spoke with PICC line nurse Spoke with Heather PICC LINE RN. She wanted clarification regarding if patient is to get a PICC or a Midline. I will inform MD and return a call back to Heather.
[2019-12-12 09:00] VITALS: BP 127/78
[2019-12-12] MEDS: FAMOTIDINE (10MG/ML) 2ML VL IV SCH ×2 (11:55→23:41)
--- NOTE | 2019-12-12 12:15 | NUR ---
physician rounding Dr. Batres at bedside. Updated him on plan of care. No new orders received.
--- NOTE | 2019-12-12 12:20 | NUR ---
Spoke with MD Per Dr. Batres patient is to get PICC line placed. I will notify CATHERINE Romero.
--- NOTE | 2019-12-12 12:30 | NUR ---
Paged PICC nurse Paged for CATHERINE Romero. Awaiting call back.
--- NOTE | 2019-12-12 12:44 | NUR ---
Physician Rounding Dr. Minor at bedside, updated him on patient status. No new orders received at this time.
--- NOTE | 2019-12-12 12:45 | NUR ---
Received call back from PICC nurse. Updated Heather regarding MD wanting PICC line placed.
[2019-12-12 13:00] VITALS: BP 124/74
[2019-12-12 14:15] LABS: INR 1.23 (0.9-1.15)
[2019-12-12 16:28] VITALS: BP 126/72
--- NOTE | 2019-12-12 19:00 | NUR ---
End of shift note Endorsed care of patient to NOC CATHERINE Doherty. No s/s of distress noted at this time.
--- NOTE | 2019-12-12 19:26 | NUR ---
Opening Shift Note Assumed care of patient, awake and alert. No S/S of distress/SOB or pain. Instructed on POC and to call for assist PRN, will continue to monitor for changes Q1hr and PRN. Side rails up x2. Bed locked in lowest position. Call light within reach.
[2019-12-12 22:00] VITALS: BP 139/85
--- NOTE | 2019-12-13 01:19 | NUR ---
IV accidentally removed IV while asleep per patient Catheter fully intact. Pressure dressing applied to site. Patient tolerated well. Will insert a new IV.
--- NOTE | 2019-12-13 01:21 | NUR ---
IV insertion IV access obtained, via clean sterile technique by inserting 22 gauge catheter on left hand after 1 attempt. IV secured properly. No trauma to site. Patient tolerated well.
--- NOTE | 2019-12-13 04:09 | NUR ---
Endorsed care to CATHERINE Epstein.
--- NOTE | 2019-12-13 04:10 | NUR ---
RECEIVED REPORT FROM JULIANE RN PATIENT IS RESTING IN BED. NO S/SX OF DISTRESS, SOB OR PAIN.
[2019-12-13 05:00] VITALS: BP 130/80
[2019-12-13] MEDS: SODIUM CHLORIDE 0.9% 1,000 ML IV SCH ×2 (06:12→22:06)
[2019-12-13] MEDS: MEROPENEM 1GM IVPB 100 ML IV SCH ×3 (07:02→22:16)
--- NOTE | 2019-12-13 07:25 | NUR ---
CLOSING NOTE- NOC SHIFT ENDORSED PATIENT CARE TO DAY SHIFT NURSE. PATIENT IS ALERT AND ORIENTED. NO S/SX OF DISTRESS, SOB OR PAIN.
[2019-12-13 08:00] VITALS: BP 146/84
--- NOTE | 2019-12-13 10:15 | NUR ---
PICC line placement Patient educated on need for PICC line placement. All risks and benefits explained and all questions and concerns addressed prior to procedure. Noted past medical history and allergies with no contraindications. INR and Plt counts within acceptable range. 5 fr PICC line inserted via R BASILIC vein using [employer] Rite US and Tip Location System. Sterile technique with maximum barrier precautions utilized. Blood return obtained from each of THE TWO lumens and each flushed easily with NS using proper technique. PICC secured with Stat-lock; biodisc and occlusive dressing applied. Stat portable chest x-ray obtained for PICC tip placement. *Baseline Arm Circumference 29CM. EXTERNAL LENGTH 0CM. INTERNAL LENGTH 43CM. PICC lot # [id number]. Note:
[2019-12-13] MEDS ORDERED: LIDOCAINE 1% (LOCAL ANESTH.) PF 5ml SDV ID ONE (10:30)
--- NOTE | 2019-12-13 11:03 | NUR ---
Okay to use PICC line Xray completed. Okay to use PICC line. Primary RN notified.
[2019-12-13 12:00] VITALS: BP 154/98
[2019-12-13] MEDS ORDERED: ATENOLOL 50 MG TAB PO ONE (12:00)
[2019-12-13] MEDS: FAMOTIDINE (10MG/ML) 2ML VL IV SCH ×2 (12:26→22:49)
--- NOTE | 2019-12-13 14:00 | NUR ---
IV REMOVED Patient's IV was removed. Patient stated "I didn't realize the IV was stuck when I got up and it fell out." No s/s of distress noted and no trauma to the site was noted. I will continue to monitor Q1hr and PRN.
--- NOTE | 2019-12-13 15:31 | NUR ---
Nutrition Followup Notes (new PN) Wt: 70.3 kg Pt sleeping with no family by bedside. per pt records pt with diverticulitis and improving. pt is currently on clear liq diet with no PO recorded as pt was NPO Est. Needs IBW (83 kg): 1334-5625 kcal (25-30 kcal/kgBW), 83-99 gms pro (1.0-1.2 gms/kgBW). Will continue to monitor pertinent labs and reassess nutrient need prn LABS: FROYLAN 1.1 H, ALB 3.3 L. GI: pt has no BM reported per RN doc BS: 20 low risk no wounds per RN doc PES: Altered nutrition related lab values r/t current chronic medical condition aeb mild hypoalb, eleV BUN Comments Will continue to closely monitor pertinent labs, PO intake and skin status prn. Will followup in 3-5 days 1) ) Advance diet as medically feasible. 2) consider ensure Enlive 1 carton tid as pt advances on diet. 3) refer to [employer] sr. media manager on DC. 4) consider alternate nutrition support if pt continues to be NPO. 5) continue current plan of care
[2019-12-13 16:55] VITALS: BP 124/75
--- NOTE | 2019-12-13 19:10 | NUR ---
end of shift note endorsed care to NOC CATHERINE Brownlee. No signs and symptoms of distress noted at this time.
[2019-12-13] MEDS: SODIUM CHLOR 0.9% PF (SALINE LOCK) 10ML VIAL/SYR IV SCH (22:06)
[2019-12-13 22:10] VITALS: BP 135/85
[2019-12-13] MEDS: ATENOLOL 50 MG TAB PO SCH (22:15)
--- NOTE | 2019-12-14 00:33 | NUR ---
PATIENT OBSERVED NOT SLEEPING. STATED THT IT WAS TIME TO GO HOME. PATIENT WAS REORIENTED AND MONITORING INCREASED.
--- NOTE | 2019-12-14 01:09 | NUR ---
0040. MEDICATED FOR ANXIETY.
--- NOTE | 2019-12-14 02:35 | NUR ---
PATIENT REFUSES TO STAY IN THE ROOM. REQUESTED TO SPEAK TO BROTHER ARON. ARON CALLED [phone]. PATIENT SPOKE WITH HIS BROTHER ARON FOR 15 MINUTES.
--- NOTE | 2019-12-14 02:56 | NUR ---
0250. PATIENT NOW IN HIS ROOM SITTING ON A CHAIR.
--- NOTE | 2019-12-14 04:17 | NUR ---
0414. PATIENT REFUSES TO STAY IN HIS ROOM WALKING ABOUT AND DISRUPTING PATIENT CARE. SECURITY CALLED AND NOTIFIED. -[phone]. SECURITY ARRIVED FLOOR AND PICKED PATIENT TO HIS ROOM AND TALKED TO HIM. THEY ARE STILL IN HIS ROOM.
--- NOTE | 2019-12-14 04:30 | NUR ---
0425. CHARGE NURSE CALLED AND NOTIFIED OF PATIENTS REFUSAL TO COMPLY WITH CARE INSTRUCTIONS. PATIENT IS STILL CONFUSED,.SECURITY IN HIS ROOM WITH HIM. CHARGE NURSE HAS PROMISED TO GET A SITTER FOR A ONE TO ONE CARE.
[2019-12-14 05:00] VITALS: BP 107/67
--- NOTE | 2019-12-14 05:00 | NUR ---
0500. PATIENT IS IN BED NOW SLEEPING. A SITTER IS BEING EXPECTED. MONITORING IN PLACE EVERY 10 MINUTES.
[2019-12-14] MEDS: MEROPENEM 1GM IVPB 100 ML IV SCH ×2 (05:31→14:30)
--- NOTE | 2019-12-14 05:33 | NUR ---
Received patient from CATHERINE Brownlee. Patient is resting in bed comfortably, no s/s of distress. Currently on RA and denies pain at this time. Double lumen PICC in right upper arm intact and patent. Flushed with 10ml NS. POC discussed. Sitter is at bedside for safety. Bed is in low locked position with side rails up x2. Call light i within reach and patient encouraged to call for assistance when needed. Will continue to monitor for changes PRN.
--- NOTE | 2019-12-14 05:42 | NUR ---
0500. PATIENT MOVED TO [facility] WITH A SITTER IN PLACE. REPORT GIVEN TO BHAVANI ALEXANDER. TWO BAGS OF MEROPENEM LEFT IN [facility] TAKEN TO BHAVANI PHYSICALLY.
--- NOTE | 2019-12-14 06:00 | NUR ---
Patient is increasingly confused. Stating that he needs to leave to go to work. Attempting to exit the room. Patient's brother Francoise called, who spoke with the patient. IV ABX stopped due to avoid dislodgement of PICC line due to confusion. Will attempt to resart when patient is calm and returns to bed. Sitter in room for safety. Will continue to monitor PRN.
--- NOTE | 2019-12-14 07:20 | NUR ---
Opening Shift Note Assumed care of patient, awake and alert. Sitter present at bedside. No S/S of distress/SOB or pain. Instructed on POC and to call for assist PRN, will continue to monitor for changes Q1hr and PRN.
[2019-12-14 08:06] VITALS: BP 127/77
[2019-12-14 09:00] VITALS: BP 127/77
--- NOTE | 2019-12-14 09:31 | NUR ---
I faxed home IV ATB order to [facility].
[2019-12-14] MEDS ORDERED: MECLIZINE HCL 25 MG TAB PO SCH (10:00)
--- NOTE | 2019-12-14 10:26 | NUR ---
I spoke with Marcie at [facility] [phone]-she received the home IV ATB order. I spoke with Dr. Batres and he told me plan was for discharge home today. I relayed this information to Marcie and told her that once I had accepting home health agency I would let her know.
[2019-12-14] MEDS: FAMOTIDINE (10MG/ML) 2ML VL IV SCH (10:36)
[2019-12-14] MEDS: SODIUM CHLOR 0.9% PF (SALINE LOCK) 10ML VIAL/SYR IV SCH (10:37)
[2019-12-14] MEDS: ATENOLOL 50 MG TAB PO SCH (10:37)
[2019-12-14] MEDS: SODIUM CHLORIDE 0.9% 1,000 ML IV SCH (10:38)
--- NOTE | 2019-12-14 11:53 | NUR ---
Assessment Patient is a 79-year-old male alert and oriented. Prior to admission patient lived home with family and function independently. Patient care for his own ADLs. Patient will return home to his prior living arrangements post discharge and family will transport patient home. Patient informed me he does not need any medical equipment now. Advised Patient there is a Social Service consult for home health IV abx for 10 days with Merrem 1gm q12hrs. Informed patient if there is someone teachable at home who can assist with IV abx. Patient stated he has 4 sisters who will be able to assist. Informed patient [facility] will be faxing clinical information to the infusion. Informed patient clinical information will be faxed to contracted agency. Informed patient he has the right to participate in all discharge planning. Patient verbalized understanding and agrees to discharge plan. Faxed clinical information to [facility] and [facility]. Per Lesia Monique ) patient has been accepted and service to start within 24hrs upon d/c day. Addendum: 12/14/19 at 1154 by FATEMEH HYDE Amended: Links added.
[2019-12-14 13:00] VITALS: BP 118/58
--- NOTE | 2019-12-14 13:03 | NUR ---
I spoke with Marcie at [facility] ([phone]) and let her know that [facility] ([phone]) will be following the patient-she said they will deliver the home IV ATB to patient's home between 7-11pm [place]-she will call patient now to let them know.
[2019-12-14 14:39] VITALS: BP 118/58
--- NOTE | 2019-12-14 14:41 | NUR ---
Obtain authorization from [facility] for [facility] [id number].
--- NOTE | 2019-12-14 14:59 | NUR ---
Patient removed PICC line Per SCHOOL HEALTH ASSISTANT, patient attempted to get out of bed, upon trying to assist the patient out of bed to secure line patient reached for the PICC line and removed it. Catheter intact upon removal and pressure dressing applied to site. MD Batres notified.
--- NOTE | 2019-12-14 15:30 | NUR ---
PICC line placement Patient significant other educated on need for PICC line placement. All risks and benefits explained and all questions and concerns addressed prior to procedure. Noted past medical history and allergies with no contraindications. INR and Plt counts within acceptable range. 4 fr PICC line inserted via RIGHT BASILIC vein using [employer]'s [employer] R[employer] US and Tip Location System. Sterile technique with maximum barrier precautions utilized. Blood return obtained from lumen and flushed easily with NS using proper technique. PICC secured with Stat-lock; biodisc and occlusive dressing applied. Stat portable chest x-ray obtained for PICC tip placement. *Baseline Arm Circumference 29CM. EXTERNAL LENGTH 0CM. INTERNAL LENGTH 41CM. PICC lot # [id number]. Note:
--- NOTE | 2019-12-14 15:46 | NUR ---
PICC line RN at bedside
[2019-12-14] MEDS ORDERED: LIDOCAINE 1% (LOCAL ANESTH.) PF 5ml SDV ID ONE (16:15)
--- NOTE | 2019-12-14 16:18 | NUR ---
Spoke to patient's family member Yosi, patient's brother, gave discharge instructions to family member, verbalized understanding. Yosi made aware of follow up appointment information and instructed to obtain referral for Dr. Recinos.
--- NOTE | 2019-12-14 16:31 | NUR ---
PICC line ok to use per CATHERINE Romero.
--- NOTE | 2019-12-14 16:40 | NUR ---
OK to use PICC line Xray completed. OK to use PICC line. PRIMARY RN NOTIFIED.
--- NOTE | 2019-12-14 17:30 | NUR ---
Discharge instructions given as ordered. Encourage to follow up with PMD as instructed. All questions and concerns addressed. Patient verbalized understanding. PICC line in place, per MD Batres patient is to receive IV antibiotic therapy at home. Patient taken to vehicle via wheelchair with all personal belongings, accompanied by staff. No distress noted at time of departure. Patient family member Yosi, given instructions for care verbalized understanding.
[2019-12-14] MEDS ORDERED: SODIUM CHLOR 0.9% PF (SALINE LOCK) 10ML VIAL/SYR IV SCH (22:00)
== END 2019-12-14 17:30 | disposition home health service (06) | DRG 391 ==
LOC: ER 08:13 → EDBD 08:13 → OVERFLOW 08:14 → WEST WING 12:05 → CENTRAL 12-14 05:13
PROVIDERS: ADMIT Internal Medicine; ATTEND Internal Medicine
PROC: 02HV33Z Insertion of Infusion Device into Superior Vena Cava, Percutaneous Approach (ICD-10-PCS; principal; 2019-12-13)
PROC: 02HV33Z Insertion of Infusion Device into Superior Vena Cava, Percutaneous Approach (ICD-10-PCS; 2019-12-14)
DX: K57.20 Diverticulitis of large intestine with perforation and abscess without bleeding (principal); N17.0 Acute kidney failure with tubular necrosis; N18.3 Chronic kidney disease, stage 3 (moderate); E78.5 Hyperlipidemia, unspecified; I12.9 Hypertensive chronic kidney disease with stage 1 through stage 4 chronic kidney disease, or unspecified chronic kidney disease; I25.2 Old myocardial infarction; N40.0 Benign prostatic hyperplasia without lower urinary tract symptoms; Z85.038 Personal history of other malignant neoplasm of large intestine; Z87.442 Personal history of urinary calculi; Z90.5 Acquired absence of kidney
CPT/HCPCS: 36415; 36569; 71045; 71046; 74176; 80053; 81001; 83605; 83690; 83735; 84484; 85025; 85610; 85730; 87040; 93005; G0378; J0696; J1956; J2185; J3490

== ENCOUNTER 2024-11-07 17:44 | Emergency (ER) | payer OTHER, MEDICAID ==
[~2024-11-07] VITALS: Ht 175.3 cm; Wt 79.0 kg
[~2024-11-07 17:44] MED LIST changes: -AMLO-483 PO; +AMLO1TAB21 PO; -CIPR-173 PO; +LORA-1121 PO; -LORA0.5T20 PO; +MECL1TAB42 PO; -METR500T PO; -TAM04C PO; +TAMS-35 PO
--- NOTE | 2024-11-07 18:22 | ED.PDOC ---
History of Present Illness HPI Comments 83-year-old male came to ER via EMS for generalized weakness. Per EMS, patient was picked up at home, was noted by family members to be generally weak recently. Patient still capable of ambulating. Does have history of Alzheimer's dementia. Patient does not have any other subjective complaints such as chest pains or shortness of breath or fever/or nausea vomiting. Blood sugar on scene was 135. Blood pressure 154/77 mmHg Chief Complaint: General Weakness Time Seen by MD: 18:22 Primary Care Provider: BRISA Dailey Notes: Beverage Host Notes Allergies: Coded Allergies: Penicillins (Verified Allergy, Unknown, 07/14/16) Home Meds Reported Medications Meclizine HCl (Meclizine 25) 25 Mg Tab, 25 MG PO DAILY, TAB 12/10/19 Tamsulosin Hcl (Flomax) 0.4 Mg Cap, 1 CAP PO DAILY, #30 CAP 11 Refills 04/17/17 Lorazepam (ATIVAN TABLET) 0.5 Mg Tb, 1 TAB PO BID, #60 TAB 04/17/17 Pravastatin Sodium (PRAVACHOL TABLET) 20 Mg Tb, 2 TAB PO DAILY, #30 TAB 5 Refills 04/17/17 Amlodipine Besylate (Amlodipine Besylate) 2.5 Mg Tab, 1 TAB PO DAILY, #30 TAB 5 Refills 04/17/17 Atenolol (TENORMIN TABLET) 50 Mg Tb, 50 MG PO HS 07/14/16 Information Source: Emergency Med Personnel Mode of Arrival: EMS Severity: Moderate Timing: Hours Duration: Since onset Prehospital treatment: Accucheck Past Medical History PAST MEDICAL HISTORY: Alzheimer, Arthritis, Cancer, Dementia, High Lipids, HTN, VT Surgical History: Cholecystectomy Family History Family History: Pt Confused Social History Smoker: Pt Confused Alcohol: Pt Confused Drugs: Pt Confused Lives In: Home Unable to Obtain due to: Dementia Physical Exam General Appearance: No Apparent Distress, Normal HEENT: Normal ENT Inspection, Pharynx Normal, TMs Normal Neck: Full Range of Motion, Non-Tender, Normal, Normal Inspection Respiratory: Chest Non-Tender, Lungs Clear, No Accessory Muscle Use, No Respiratory Distress, Normal Breath Sounds Cardiovascular: No Edema, No JVD, No Murmur, No Gallop, Normal Peripheral Pulses, Regular Rate/Rhythm Breast Exam: Deferred Gastrointestinal: No Organomegaly, Non Tender, No Pulsatile Mass, Normal Bowel Sounds, Soft Genitalia: Deferred Pelvic: Deferred Rectal: Deferred Extremities: No calf tenderness, Normal capillary refill, Normal inspection, Normal range of motion, Non-tender, No pedal edema Musculoskeletal : Apperance: Normal Neurologic: Alert, floatman II-XII nml as Tested, No Motor Deficits, Normal Affect, Normal Mood, No Sensory Deficits Cerebellar Function: Normal Reflexes: Normal Skin: Dry, Normal Color, Warm Lymphatic: No Adenopathy Was a procedure done? Was a procedure done?: No EKG EKG : Pulse Rate (adult): 65 Cardiac Rhythm: NSR Differential Dx Considerations may include: Anemia. Electrolyte imbalance. Dementia. Urinary tract infection. Weakness X-Ray, Labs, Meds, VS Vital Signs Date Time Temp Pulse Resp B/P (MAP) Pulse Ox O2 Delivery O2 Flow Rate FiO2 11/07/24 20:45 63 11/07/24 19:39 96.7 76 16 147/57 (87) 98 96.7 11/07/24 18:39 63 14 139/58 (85) 97 11/07/24 18:22 65 11/07/24 17:58 98.8 62 18 154/77 (102) 97 98.8 11/07/24 17:56 65 Lab Test 11/07/24 20:37 11/07/24 18:52 Range/Units Troponin I High Sensitivity 4 5 </=54 ng/L White Blood Count 5.2 4.4-10.8 10^3/uL Red Blood Count 4.65 4.5-5.90 10^6/uL Hemoglobin 14.2 13.5-17.5 g/dL Hematocrit 42.0 41.0-53.0 % Mean Corpuscular Volume 90.4 80.0-100.0 fL Mean Corpuscular Hemoglobin 30.6 28.0-32.0 pg Mean Corpuscular Hemoglobin Concent 33.9 32.0-36.0 g/dL Red Cell Distribution Width 13.6 11.8-14.3 % Platelet Count 161 140-450 10^3/uL Mean Platelet Volume 8.5 6.9-10.8 fL Neutrophils (%) (Auto) 60.4 37.0-80.0 % Lymphocytes (%) (Auto) 28.7 10.0-50.0 % Monocytes (%) (Auto) 7.4 0.0-12.0 % Eosinophils (%) (Auto) 3.1 0.0-7.0 % Basophils (%) (Auto) 0.4 0.0-2.0 % Neutrophils # (Auto) 3.1 1.6-8.6 10 ^3/uL Lymphocytes # (Auto) 1.5 0.4-5.4 10 ^3/uL Monocytes # (Auto) 0.4 0-1.3 10 ^3/uL Eosinophils # (Auto) 0.2 0-0.8 10 ^3/uL Basophils # (Auto) 0 0-0.2 10 ^3/uL Nucleated Red Blood Cells 0.3 % Sodium Level 141 136-145 mmol/L Potassium Level 4.6 3.5-5.1 mmol/L Chloride Level 106 98-107 mmol/L Carbon Dioxide Level 28 20-31 mmol/L Anion Gap 7 5-15 Blood Urea Nitrogen 19 9-23 mg/dL Creatinine 1.22 0.700-1.30 mg/dL Glomerular Filtration Rate Calc 59 >90 mL/min BUN/Creatinine Ratio 15.6 10.0-20.0 Serum Glucose 94 74-106 mg/dL Calcium Level 9.7 8.7-10.4 mg/dL Magnesium Level 2.0 1.6-2.6 mg/dL Total Bilirubin 0.8 0.2-1.0 mg/dL Aspartate Amino Transferase (AST) 19 13-40 U/L Alanine Aminotransferase (ALT) 12 7-40 U/L Alkaline Phosphatase 102 46-116 U/L Total Protein 6.5 5.7-8.2 g/dL Albumin 4.2 3.2-4.8 g/dL Time of 1ST Reevaluation: 18:18 Reevaluation 1ST: Unchanged Patient Education/Counseling: Diagnosis, Treatment Family Education/Counseling: No Family Present Departure 1 Departure Time of Disposition: 21:39 Impression: Primary Impression: Alzheimer dementia Disposition: 01 HOME / SELF CARE / HOMELESS Condition: Stable Discharged With: Self Critical Care Note Critical Care Time?: No Stability Stability form required: No Heart Score Heart Score: Heart Score Response (Comments) Value History N/A 0 EKG N/A 0 Age N/A 0 Risk Factors N/A 0 Troponin N/A 0 Total 0 I personally scribed for MARIO GRAVES MD ([email or web address]) on 11/07/24 at 18:22. Electronically submitted by Vini Benson ([email or web address]). MARIO GRAVES MD Nov 07, 2024 18:22
[2024-11-07 19:16] LABS: Basophils # (auto) 0 10 ^3/uL (0-0.2); Basophils % (auto) 0.4 % (0.0-2.0); Eosinophils # (auto) 0.2 10 ^3/uL (0-0.8); Eosinophils % (auto) 3.1 % (0.0-7.0); Hemoglobin 14.2 g/dL (13.5-17.5); Lymphocytes # (auto) 1.5 10 ^3/uL (0.4-5.4); Lymphocytes % (auto) 28.7 % (10.0-50.0); Mean Corpuscular Hemoglobin 30.6 pg (28.0-32.0); Mean Corpuscular Hgb Conc. 33.9 g/dL (32.0-36.0); Mean Corpuscular Volume 90.4 fL (80.0-100.0); Monocytes # (auto) 0.4 10 ^3/uL (0-1.3); Monocytes % (auto) 7.4 % (0.0-12.0); Neutrophils # (auto) 3.1 10 ^3/uL (1.6-8.6); Neutrophils % (auto) 60.4 % (37.0-80.0); Nucleated Red Blood Cells % 0.3 %; Platelet Count (auto) 161 10^3/uL (140-450); Red Blood Cells 4.65 10^6/uL (4.5-5.90); Red Cell Distribution Width 13.6 % (11.8-14.3); White Blood Cell 5.2 10^3/uL (4.4-10.8)
[2024-11-07 19:36] LABS: Alanine Aminotransferase 12 U/L (7-40); Alkaline Phosphatase 102 U/L (46-116); Anion Gap 7 (5-15); Aspartate Aminotransferase 19 U/L (13-40); BUN/Creatinine Ratio 15.6 (10.0-20.0); Blood Urea Nitrogen 19 mg/dL (9-23); Calcium 9.7 mg/dL (8.7-10.4); Carbon Dioxide 28 mmol/L (20-31); Chloride 106 mmol/L (98-107); Glucose 94 mg/dL (74-106); Potassium 4.6 mmol/L (3.5-5.1); Sodium 141 mmol/L (136-145); Total Protein 6.5 g/dL (5.7-8.2)
[2024-11-07 19:37] LABS: Albumin 4.2 g/dL (3.2-4.8); Bilirubin, Total 0.8 mg/dL (0.2-1.0)
--- NOTE | 2024-11-07 22:09 | ECG ---
[facility] Test Date: 2024-11-07 Test Time: 17:56:11 Pat Name: MEGHA VASQUES Department: ED Room: Gender: M Silk Examiner: apolinar : 1940 Requested By: SASCHA IVEY Order Number: [id number] Reading MD: Damian Villavicencio Measurements Intervals Bishop Rate: 65 P: 30 NH: 177 QRS: -5 QRSD: 150 T: 21 QT: 417 QTc: 434 Interpretive Statements Sinus rhythm Probable left atrial enlargement Right bundle branch block Inferior infarct, old Lateral leads are also involved Electronically Signed On 11-08-2024 22:14:11 PDT by Damian Villavicencio Please click the below link to view image of tracing.
[2024-11-07 22:19] VITALS: BP 147/57; PULSE 76; RESP 16; TEMP 96.7; O2SAT 96
== END 2024-11-07 22:30 | disposition home or self-care (01) ==
LOC: EDSEX 17:44 → EDBD 17:44 → ER 17:48
DX: G30.9 Alzheimer's disease, unspecified (principal); F02.80 Dementia in other diseases classified elsewhere, unspecified severity, without behavioral disturbance, psychotic disturbance, mood disturbance, and anxiety; M19.90 Unspecified osteoarthritis, unspecified site; E78.5 Hyperlipidemia, unspecified; I25.2 Old myocardial infarction; I10 Essential (primary) hypertension; Z90.49 Acquired absence of other specified parts of digestive tract; Z88.0 Allergy status to penicillin; Z79.899 Other long term (current) drug therapy
CPT/HCPCS: 36415; 80053; 83735; 84484; 85025; 93005